=== PATIENT | female | born 1995 | race Caucasian/White ===

== ENCOUNTER 2020-06-06 07:46 | Outpatient (CLI) | payer MEDICAID, SELFPAY ==
[2020-06-07 21:58] LABS: SARS-CoV-2 RNA Undetected (Undetected); SARS-CoV-2 Specimen Source Nasopharynx
== END 2020-06-06 08:06 ==
PROVIDERS: PCP Family Medicine; Visit Provider Family Medicine
DX: Z11.59 Encounter for screening for other viral diseases (principal)
CPT/HCPCS: U0003

== ENCOUNTER 2020-11-28 03:16 | Outpatient (CLI) | payer BC, MEDICAID, SELFPAY ==
[2020-11-29 18:34] LABS: COVID-19 RT-PCR UVMMC Result Negative (Negative)
== END 2020-11-28 03:36 ==
PROVIDERS: PCP Family Medicine; Visit Provider Family Medicine
DX: Z11.52 Encounter for screening for COVID-19 (principal)
CPT/HCPCS: U0003

== ENCOUNTER 2021-03-26 01:58 | Outpatient (CLI) | payer BC, MEDICAID, SELFPAY ==
[2021-03-27 14:39] LABS: COVID-19 RT-PCR UVMMC Result Negative (Negative)
== END 2021-03-26 01:59 | disposition home or self-care (01) ==
LOC: LBO 01:58
PROVIDERS: PCP Family Medicine; Visit Provider Family Medicine
DX: Z20.822 Contact with and (suspected) exposure to COVID-19 (principal)
CPT/HCPCS: U0003